=== PATIENT | male | born 1975 | race Two or more races ===

== ENCOUNTER 2024-04-07 01:53 | Emergency (ER) | payer MEDICAID ==
[~2024-04-07] VITALS: Ht 170.2 cm; Wt 86.4 kg
[~2024-04-07 01:53] MED LIST: CHOL10002 PO; DOCU-28 PO; FURO40TA4 PO; LACT10SO3 PO; MULT-1085 PO; RIFA550T PO; SPIR50TA5 PO; VITA80008 PO
[2024-04-07 02:05] VITALS: TEMP 98
[2024-04-07 02:52] LABS: BASOPHILS % (AUTO) 0.5 % (0-1); EOSINOPHILS % (AUTO) 0.4 % (0-6); HEMATOCRIT 48.7 % (42.0-52.0); HEMOGLOBIN 16.4 g/dl (14.0-17.9); LYMPHOCYTES # (AUTO) 1.4 X10'3 (1.1-4.8); LYMPHOCYTES % (AUTO) 21.1 % (21-51); MEAN CORPUSCULAR HEMOGLOBIN 28.5 PG (27.0-31.0); MEAN CORPUSCULAR HGB CONC 33.7 g/dL (33.0-36.5); MEAN CORPUSCULAR VOLUME 84.7 FL (78-98); MEAN PLATELET VOLUME 8.8 FL (7.4-10.4); MONOCYTES # (AUTO) 0.4 X10'3 (0-0.9); MONOCYTES % (AUTO) 5.6 % (2-12); NEUTROPHILS # (AUTO) 4.9 X10'3 (1.8-7.7); NEUTROPHILS % (AUTO) 72.4 % (42-75); PLATELET COUNT 109 X10'3 (140-440); RED BLOOD COUNT 5.76 X10'6 (4.70-6.10); RED CELL DISTRIBUTION WIDTH 14.1 % (11.5-14.5); WHITE BLOOD COUNT 6.8 X10'3 (4.5-11.0)
[2024-04-07] MEDS: ondansetron 4mg rapidly disintigrating tab PO ONE (03:00)
[2024-04-07] MEDS: oxyCODONE IR 5mg (immed. release) tablet PO ONE (03:00)
[2024-04-07 03:04] LABS: ALANINE AMINOTRANSFERASE 49 U/L (12-78); ALBUMIN 4.4 G/DL (3.4-5.0); ALBUMIN/GLOBULIN RATIO 1.3 (1.1-1.5); ALKALINE PHOSPHATASE 99 IU/L (46-116); ANION GAP 6 (8-16); ASPARTATE AMINO TRANSFERASE 22 U/L (10-37); BILIRUBIN,TOTAL 0.9 MG/DL (0.1-1.0); BLOOD UREA NITROGEN 16 MG/DL (7-18); BUN/CREATININE RATIO 14.4 (10.0-20.0); CALCIUM 8.5 MG/DL (8.5-10.1); CHLORIDE 107 MMOL/L (99-107); CREATININE 1.11 MG/DL (0.60-1.10); GLUCOSE 111 MG/DL (70-104); LIPASE 56 U/L (16-77); SODIUM 141 MMOL/L (135-145); TOTAL CARBON DIOXIDE 27.8 MMOL/L (24-32); TOTAL PROTEIN 7.7 G/DL (6.4-8.2); eCRCL 74 ML/MIN; eGFR 70 ML/MIN
[2024-04-07 05:00] VITALS: BP 123/80; PULSE 92; RESP 15; O2SAT 96
== END 2024-04-07 05:10 | disposition home or self-care (01) ==
LOC: ER 01:54
DX: R10.32 Left lower quadrant pain (principal); Z79.899 Other long term (current) drug therapy
CPT/HCPCS: 36415; 74176; 80053; 83690; 84145; 85025; 99285

== ENCOUNTER 2024-06-22 10:30 | Outpatient (CLI) | payer MEDICAID | END 2024-06-22 23:59 | disposition home or self-care (01) | LOC: MRI02 10:30 | PROVIDERS: ATTEND Family Medicine | DX: G93.89 Other specified disorders of brain (principal); G43.009 Migraine without aura, not intractable, without status migrainosus; G45.9 Transient cerebral ischemic attack, unspecified | CPT/HCPCS: 70551 ==

== ENCOUNTER 2025-03-15 22:53 | Emergency (ER) | payer MEDICAID ==
[~2025-03-15] VITALS: Ht 170.2 cm; Wt 79.5 kg
[~2025-03-15 22:53] MED LIST changes: +LACT-373 PO; -LACT10SO3 PO
[2025-03-15 23:21] LABS: MEAN PLATELET VOLUME 9.1 FL (7.4-10.4); RED CELL DISTRIBUTION WIDTH 16.0 % (11.5-14.5)
[2025-03-15 23:38] LABS: CREATININE 0.96 MG/DL (0.60-1.10); TOTAL CARBON DIOXIDE 29.4 MMOL/L (24-32); eCRCL 85 ML/MIN; eGFR 83 ML/MIN
[2025-03-16] LABS: LEUKOCYTE ESTERASE ,URINE NEGATIVE (Neg); NITRITES, URINE NEGATIVE (Neg); OCCULT BLOOD,URINE TRACE-INTACT (Neg)
[2025-03-16 00:01] LABS: UA COLLECTION TYPE VOIDED
[2025-03-16 00:05] LABS: SQUAMOUS EPITHELIAL CELL,UR FEW /LPF (FEW)
[2025-03-16 00:06] LABS: MUCUS STRANDS FEW /LPF (Neg)
--- NOTE | 2025-03-16 00:19 | Physician Documentation ---
History of Present Illness ~ Chief Complaint: Abdominal Pain Stated Complaint: ABDOMINAL PAIN Time Seen by MD: 00:16 Primary Medical Doctor: Dr. Ralph Wagner Mode of Arrival: POV HPI Patient presents to the emergency room for evaluation of left lower quadrant pain. History is complicated by previous liver transplant. Onset of symptoms this morning. He reports similar symptoms proximally two years ago with negative findings. He does endorse having decreased bowel movements. No problems urinating. No fevers. Medication Reconciliation Allergies: Coded Allergies: No Known Allergies (Unverified , 04/07/24) Scheduled Cholecalciferol (Vitamin D3) (Vitamin D3), 2 TAB PO DAILY, (Reported) Docusate Sodium (Colace), 1 CAP PO HS, (Reported) Furosemide (Furosemide), 1 TAB PO BID, (Reported) Lactulose (Lactulose), 30 ML PO QAM, (Reported) Multivitamin (Multi Vitamin Daily), 1 EACH PO DAILY, (Reported) Rifaximin (Xifaxan), 1 TAB PO Q12H, (Reported) Spironolactone (Spironolactone), 1 TAB PO DAILY, (Reported) Vitamin A (Vitamin A), 1 CAP PO DAILY, (Reported) Past Medical History Past Medical History: Hepatitis C, Liver Failure Past Surgical History: no surgical history Alcohol Use: None Drug Use: none Lives In: Home Review of Systems ROS All review of systems negative except as per HPI Physical Exam Vital Signs: Temperature: 97.6, Source: Oral, Heart Rate: 74, Respiratory Rate: 18, BP: 131/92, Pulse Oximetry: 98, Weight: 79.550 Oxygen Flow Rate: 0 Physical Exam General: Patient is awake, alert, oriented x4 in no acute distress Head: Normocephalic and atraumatic. Eyes: Conjunctival normal. EOMI. PERRL. ENT: Mucous membranes moist. Neck: Supple, trachea is midline. Chest: Clear to auscultation bilaterally without rales, rhonchi, or wheezes. There is no accessory muscle use or retractions. Cardiac: RRR without murmurs, gallops, or rubs. Abd: Soft, nondistended, mild tenderness to palpation to left lower quadrant without peritonitis. Negative McBurney's negative Valdivia's Progress Results/Orders Results/Orders Orders - TEE GALINDO MD Abdomen,Single View(Kub) (03/16/25 00:39) Completed Orders - TEE GALINDO MD Cbc/Diff (03/15/25 22:56) Lipase (03/15/25 22:56) CMP (03/15/25 22:56) Ua W/Microscopic, Cult If Ind (03/15/25 23:49) Abdomen,Single View(Kub) (03/16/25 00:39) Vital Signs 03/15/25 03/15/25 23:06 23:36 Temp 97.6 Pulse 75 74 Resp 16 18 B/P (MAP) 130/89 131/92 (105) Pulse Ox 99 98 O2 Flow Rate 0 Laboratory Tests Test 03/15/25 23:05 03/15/25 23:49 White Blood Count 5.2 Red Blood Count 6.05 Hemoglobin 17.3 Hematocrit 49.8 Mean Corpuscular Volume 82.2 Mean Corpuscular Hemoglobin 28.6 Mean Corpuscular Hemoglobin Concent 34.8 Red Cell Distribution Width 16.0 H Platelet Count 108 L Mean Platelet Volume 9.1 Neutrophils (%) (Auto) 63.9 Lymphocytes (%) (Auto) 29.4 Monocytes (%) (Auto) 5.3 Eosinophils (%) (Auto) 1.2 Basophils (%) (Auto) 0.2 Neutrophils # (Auto) 3.3 Lymphocytes # (Auto) 1.5 Monocytes # (Auto) 0.3 Eosinophils # (Auto) 0.1 Basophils # (Auto) 0.0 CBC Comment Sodium Level 138 Potassium Level 4.5 Chloride Level 103 Carbon Dioxide Level 29.4 Anion Gap 6 L Blood Urea Nitrogen 15 Creatinine 0.96 Estimated GFR/1.73 m2 83 BUN/Creatinine Ratio 15.6 Glucose Level 93 Calcium Level 9.0 Total Bilirubin 1.3 H Aspartate Amino Transf (AST/SGOT) 23 Alanine Aminotransferase (ALT/SGPT) 38 Alkaline Phosphatase 99 Total Protein 7.4 Albumin 4.3 Globulin 3.1 Albumin/Globulin Ratio 1.4 Lipase 46 Chemistry Comments Urine Specimen Description Voided Urine Color Yellow Urine Clarity Clear Urine pH 5.5 Urine Specific [place] 1.025 Urine Protein Negative Urine Glucose (UA) Negative Urine Ketones Negative Urine Occult Blood Trace-intact Urine Nitrite Negative Urine Bilirubin Negative Urine Urobilinogen 0.2 Urine Leukocyte Esterase Negative Urine RBC 0-2 Urine WBC 0-4 Urine Squamous Epithelial Cells Few Urine Bacteria None seen Urine Mucus Few Urine Culture Indicated Not ind Volume Urine Centrifuged 10 ml Urine Comment Medical Decision Making Findings Patient presents to the emergency room with left lower quadrant pain as per HPI. Differentials include but are not limited to constipation, gas, diverticulitis, kidney stone, pyelonephritis therefore emergent labs ordered. X-ray is negative for obstructive process. Upon re-evaluation patient is sleeping and easily arousable. Given reassuring labs physical exam as well as vital signs and no elevation of white blood cell count he had not feel patient requires CT scan at this time. Given patient's report of decreased bowel movements along with left lower quadrant pain I believe he may be suffering from constipation and we will treat him accordingly. ER precautions discussed Departure Disposition: HOME / SELF CARE / HOMELESS Impression: Primary Impression: Abdominal pain Condition: Stable Discharge Instructions: Abdominal Pain (Nonspecific) Referrals: NO PRIMARY CARE PROVIDER (PCP) Prescriptions Docusate Sodium (Dulcolax Stool Softener) 100 Mg Capsule 1 CAP PO DAILY for 30 Days, #30 CAP 0 Refills Prov: TEE GALINDO MD 03/16/25 Education Educated: Patient Educated regarding: diagnosis, treatment, need for follow up Signature Scribe Signature: No scribe Attestation: The note accurately reflects work and decisions made by me.Tee Galindo MD 03/16/25 01:31 TEE GALINDO MD Mar 16, 2025 00:19
--- NOTE | 2025-03-16 01:02 | RADIOLOGY REPORT ---
Exam: DI ABDOMEN,SINGLE VIEW(KUB) Indication: llq pain Comparison: None Technique: 2 radiographic views of the abdomen. Findings: The visualized portions of the lung bases are clear. Nonobstructive bowel gas pattern noted. There is no definite evidence for pneumoperitoneum. No abnormal calcifications noted. Impression: 1. Nonobstructive bowel gas pattern noted.
[2025-03-16] MEDS ORDERED: DOCU-171 PO (01:31)
[2025-03-16] MEDS: bisacodyl 5mg tablet.DR PO ONE (01:39)
[2025-03-16 01:41] VITALS: BP 111/71; PULSE 84; RESP 18; TEMP 97.6; O2SAT 100
== END 2025-03-16 01:43 | disposition home or self-care (01) ==
LOC: ER 22:53
DX: R10.32 Left lower quadrant pain (principal); Z79.899 Other long term (current) drug therapy
CPT/HCPCS: 36415; 74018; 80053; 81001; 81003; 83690; 85025; 99284